=== PATIENT | male | born 1940 | race Caucasian/White ===

== ENCOUNTER → 2021-12-25 11:00 | Outpatient (BNVA) | payer MEDICARE, SELFPAY | PROVIDERS: Visit Provider Student in an Organized Health Care Education/Training Program | DX: M35.3 Polymyalgia rheumatica (principal); M25.541 Pain in joints of right hand; Z79.52 Long term (current) use of systemic steroids | CPT/HCPCS: 36415; 80053; 85025; 85652; 86140; 86200; 86431; 99212 ==

== ENCOUNTER 2021-12-25 11:43 | Outpatient (REF) | payer MEDICARE, SELFPAY ==
[2021-12-25 11:59] LABS: MANUAL DIFF FLAG NO
[2021-12-25 12:33] LABS: Basophils Absolute Auto 0.1 X10*3/uL (0.0-0.2); Basophils Percent Auto 0.7 % (0-2); Eosinophils Absolute Auto 0.1 X10*3/uL (0.0-0.4); Eosinophils Percent Auto 0.7 % (0-4); Hemoglobin 13.8 g/dl (14.0-18.0); Imm Gran Abs Auto 0.03 X10*3/uL (0.00-0.03); Imm Gran Pct Auto 0.4 % (0.0-0.4); Lymphocytes Absolute Auto 1.3 X10*3/uL (1.2-4.9); Lymphocytes Percent Auto 16.4 % (20-40); Mean Corpuscular HGB Conc 33.7 g/dl (31.0-36.0); Mean Corpuscular Hemoglobin 31.6 pg (27.0-33.0); Mean Corpuscular Volume 93.8 fL (80.0-98.0); Mean Platelet Volume 9.6 fL (9.4-12.4); Monocytes Absolute Auto 0.7 X10*3/uL (0.1-1.2); Monocytes Percent Auto 8.2 % (2-11); Neutrophils Percent Auto 73.6 % (45-73); Platelet Count 265 X10*3/uL (160-400); Red Blood Count 4.37 X10*6/uL (4.60-5.80); Red Cell Distribution Width 13.6 % (11.0-16.0); White Blood Count 8.2 X10*3/uL (4.8-10.8)
[2021-12-25 13:24] LABS: Erythrocyte Sedimentation Rate 7 MM/HR (0-15)
[2021-12-25 13:29] LABS: Alanine Aminotransferase 25 U/L (0-40); Albumin Level 4.2 g/dL (3.5-5.0); Alkaline Phosphatase 64 U/L (39-117); Anion Gap 16 (12-20); Aspartate Amino Transferase 20 U/L (5-37); Bilirubin Total 0.6 mg/dL (0.0-1.0); Blood Urea Nitrogen 23 mg/dL (9-16); C Reactive Protein 0.34 mg/dL (< or = 0.50); Calcium 8.9 mg/dL (8.4-10.2); Carbon Dioxide 20 mmol/L (22-29); Chloride 104 mmol/L (96-108); Estimated Glomerular Filt Rate 38; Potassium 4.6 mmol/L (3.3-5.1); Rheumatoid Factor < 15.0 IU/mL (<15.0); Sodium 135 mmol/L (135-145); Total Protein 6.9 g/dL (6.5-8.0)
[2021-12-25 13:32] LABS: Glucose Random 391 mg/dL (60-115)
[2021-12-29 16:57] LABS: Cyclic Citrullinated Peptide <16 UNITS
== END 2021-12-25 11:44 | disposition home or self-care (01) ==
LOC: HO.LAB 11:43
PROVIDERS: Visit Provider Student in an Organized Health Care Education/Training Program
DX: Z13.89 Encounter for screening for other disorder (principal)
CPT/HCPCS: 36415; 80053; 85025; 85652; 86140; 86200; 86431

== ENCOUNTER → 2022-03-02 08:05 | Outpatient (BNVA) | payer MEDICARE, SELFPAY | PROVIDERS: PCP Physician Assistant; Visit Provider Student in an Organized Health Care Education/Training Program | DX: M35.3 Polymyalgia rheumatica (principal); M25.541 Pain in joints of right hand | CPT/HCPCS: 99212 ==

== ENCOUNTER → 2022-04-27 07:59 | Outpatient (BNVA) | payer MEDICARE, SELFPAY | PROVIDERS: PCP Physician Assistant; Visit Provider Student in an Organized Health Care Education/Training Program | DX: M18.12 Unilateral primary osteoarthritis of first carpometacarpal joint, left hand (principal); M35.3 Polymyalgia rheumatica | CPT/HCPCS: 99212 ==

== ENCOUNTER → 2022-08-04 08:39 | Outpatient (BNVA) | payer MEDICARE, SELFPAY | PROVIDERS: PCP Physician Assistant; Visit Provider Student in an Organized Health Care Education/Training Program | DX: M18.12 Unilateral primary osteoarthritis of first carpometacarpal joint, left hand (principal); M35.3 Polymyalgia rheumatica | CPT/HCPCS: 20600; 36415; 80053; 85025; 85652; 86140; 99212 ==

== ENCOUNTER 2022-08-04 09:09 | Outpatient (REF) | payer MEDICARE, SELFPAY ==
[2022-08-04 10:30] LABS: MANUAL DIFF FLAG NO
[2022-08-04 10:35] LABS: Basophils Absolute Auto 0.1 X10*3/uL (0.0-0.2); Eosinophils Absolute Auto 0.2 X10*3/uL (0.0-0.4); Eosinophils Percent Auto 2.6 % (0-4); Hematocrit 40.6 % (42.0-52.0); Hemoglobin 13.7 g/dl (14.0-18.0); Imm Gran Abs Auto 0.03 X10*3/uL (0.00-0.03); Imm Gran Pct Auto 0.4 % (0.0-0.4); Lymphocytes Absolute Auto 2.6 X10*3/uL (1.2-4.9); Lymphocytes Percent Auto 31.4 % (20-40); Mean Corpuscular HGB Conc 33.7 g/dl (31.0-36.0); Mean Corpuscular Hemoglobin 31.6 pg (27.0-33.0); Mean Corpuscular Volume 93.5 fL (80.0-98.0); Mean Platelet Volume 9.6 fL (9.4-12.4); Monocytes Absolute Auto 0.9 X10*3/uL (0.1-1.2); Monocytes Percent Auto 11.5 % (2-11); Neutrophils Absolute Auto 4.3 x10*3/uL (2.0-8.3); Neutrophils Percent Auto 53.1 % (45-73); Platelet Count 264 X10*3/uL (160-400); Red Blood Count 4.34 X10*6/uL (4.60-5.80); Red Cell Distribution Width 13.8 % (11.0-16.0); White Blood Count 8.1 X10*3/uL (4.8-10.8)
[2022-08-04 10:59] LABS: Alanine Aminotransferase 25 U/L (0-40); Albumin Level 4.2 g/dL (3.5-5.0); Alkaline Phosphatase 78 U/L (39-117); Anion Gap 13 (12-20); Aspartate Amino Transferase 26 U/L (5-37); Bilirubin Total 0.8 mg/dL (0.0-1.0); Blood Urea Nitrogen 23 mg/dL (9-16); C Reactive Protein 0.51 mg/dL (< or = 0.50); Calcium 9.4 mg/dL (8.4-10.2); Carbon Dioxide 25 mmol/L (22-29); Chloride 106 mmol/L (96-108); Estimated Glomerular Filt Rate 39; Glucose Random 160 mg/dL (60-115); Potassium 4.5 mmol/L (3.3-5.1); Sodium 139 mmol/L (135-145); Total Protein 6.9 g/dL (6.5-8.0)
[2022-08-04 11:27] LABS: Erythrocyte Sedimentation Rate 10 MM/HR (0-15)
== END 2022-08-04 09:10 | disposition home or self-care (01) ==
LOC: HO.10HDL 09:09
PROVIDERS: Visit Provider Student in an Organized Health Care Education/Training Program
DX: Z13.89 Encounter for screening for other disorder (principal)
CPT/HCPCS: 36415; 80053; 85025; 85652; 86140; 99212

== ENCOUNTER 2023-02-22 09:24 | Outpatient (AMB) | payer MEDICARE, SELFPAY ==
[2023-02-22 09:25] VITALS: BP 126/68; PULSE 57; TEMP 36.2; O2SAT 98; BMI 29.3
--- NOTE | 2023-02-22 09:25 | A.OFFVIS_ITS ---
Intake Vital Signs 02/22/23 09:25 Height 5 ft 9 in Weight 198 lb 6.656 oz BMI 29.3 BP 126/68 Blood Pressure Location Rt brachial Position Sitting Pulse 57 Pulse Source Pulse Oximeter Temp 97.1 F Temp Source Skin Pulse Oximetry (%) 98 Intake Visit Reasons: PMR Intake Note: Pt last seen 08/04/22, presents today to follow up on PMR. Not on prednisone. Admits flare up of symptoms bl hands. 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 States that he was doing well until about 1 month ago when he started to have pain and stiffness of both hands, worse on the left. He was not able to hold a golf club. States that there was no increased physical activity. He was off prednisone. He started taking prednisone 2 mg daily over the last 4 weeks with moderate improvement. Initial history: 81-year-old male past medical history of hypertension, dyslipidemia, type 2 diabetes, CKD, BPH is here for evaluation of polymyalgia rheumatica. He was last seen by Dr. Aguayo last year. He was diagnosed with polymyalgia rheumatica about 2 years ago no started on prednisone taper. He has been taking 2 mg of prednisone every day for the last 6-8 months. He mentions that if he misses the dose for a few days he will have pain and stiffness of his hands. Currently he has occasional neck pain. Also recently he was walking in [place] [facility] and afterwards had pain in the lateral aspect of both hips which is improving now. He denies headaches, blurry vision. [facility] Medical History Lateral epicondylitis Kidney stone BPH (benign prostatic hyperplasia) CKD (chronic kidney disease) Type 2 diabetes mellitus Hypertension Dyslipidemia Afib CAD (coronary artery disease) Factor XI deficiency Surgical History H/O heart surgery Hx of tonsillectomy Hx of colonoscopy Social History Alcohol intake: current Alcohol intake frequency: does not drink Patient Tobacco Use Status: Former Tobacco user Quit Date: 1983 Review of Systems Const Denies fatigue and Denies fever(s) Resp Reports no additional complaints Musc Reports arthralgias Endo Denies fatigue Physical Exam Vital Signs: Last Vital Signs Temp 97.1 F 02/22/23 09:25 Pulse 57 02/22/23 09:25 BP 126/68 02/22/23 09:25 Pulse Ox 98 02/22/23 09:25 BMI result Body Mass Index 29.3 Const General: cooperative, healthy appearing, comfortable, no acute distress and well developed Nutritional Appearance: overweight Orientation/consciousness: patient oriented x3 Limitations: no limitations Resp Effort & Inspection: normal respiratory effort and able to speak in complete sentences Auscultation: clear to auscultation bilaterally Cardio Rate: regular rate Rhythm: regular rhythm and abnormal rhythm Heart sounds: S1 normal heart sound present GI Palpation (GI): Soft to palpation and nontender Skin General skin exam: no rashes or lesions noted Neuro General: patient oriented x3 Extrem Other: Full range of motion of hands, shoulders, elbows without pain Left 1st CMC joint tenderness Left 1st MCP tenderness Left 2nd and 3rd flexor tendon tenderness Right 1st CMC joint and right 1st MCP joint tenderness Right 3rd and 4th flexor tendon tenderness General: Yes full ROM Assessment & Plan Assessment & Plan (1) Polymyalgia rheumatica: Code(s): M35.3 - Polymyalgia rheumatica Plan: 82-year-old male with a past medical history of hypertension, type 2 diabetes mellitus, CKD is here for PMR f/u. Diagnosed around in 2019. He Was started on a prednisone taper. Patient was off prednisone since last visit in 07/2022, 1 month ago he started having a flare-up of joint pain. Improved with 2 mg of prednisone daily. On exam he has multiple flexor tendon tenderness, clinical picture rather consistent with seronegative RA. Check labs today, check an EKG to evaluate his QTC interval. Increase prednisone to 5 mg daily. Will check his HbA1c today. Advised patient to check his sugar and call the clinic if his blood sugar increases above 200 Follow-up in 4 weeks (2) Unilateral primary osteoarthritis of first carpometacarpal joint, left hand: Code(s): M18.12 - Unilateral primary osteoarthritis of first carpometacarpal joint, left hand Plan: Injected in clinic 07/2022 with good relief Plan I spent 26 minutes reviewing patient's chart, evaluating patient, ordering diagnostic workup, counseling patient and documenting in the chart Orders: Orders Complete Blood Count Auto Diff Today M06.9 - Rheumatoid arthritis, unspecified C Reactive Protein Today M06.9 - Rheumatoid arthritis, unspecified Erythrocyte Sedimentation Rate Today M06.9 - Rheumatoid arthritis, unspecified Hemoglobin A1c Today E11.9 - Type 2 diabetes mellitus without complications T Spot TB Today Z11.7 - Encounter for testing for latent tuberculosis infection Immunofixation Pnl, Serum Today M06.9 - Rheumatoid arthritis, unspecified Protein Electrophoresis, Serum Today M06.9 - Rheumatoid arthritis, unspecified Rheumatoid Factor Today M06.9 - Rheumatoid arthritis, unspecified Comprehensive Met. Panel Today M06.9 - Rheumatoid arthritis, unspecified Hepatitis A,B,C Profile Today Z11.59 - Encounter for screening for other viral diseases ECG 12 lead EKG Today I48.91 - Unspecified atrial fibrillation Cyclic Citrullinated Peptide Today M06.9 - Rheumatoid arthritis, unspecified Medications: New prednisone 5 mg (2 x 2.5 mg) PO DAILY 30 tabs 1RF prednisone 5 mg (2 x 2.5 mg) PO DAILY 60 tabs 1RF Coding Level of Care Code Est Pt Level 4 (65715) Diagnoses Polymyalgia rheumatica M35.3 Unilateral primary osteoarthritis of first carpometacarpal joint, left hand M18.12
== END 2023-02-22 09:51 | disposition home or self-care (01) ==
PROVIDERS: PCP Physician Assistant; Visit Provider Student in an Organized Health Care Education/Training Program
DX: M35.3 Polymyalgia rheumatica (principal); M18.12 Unilateral primary osteoarthritis of first carpometacarpal joint, left hand
CPT/HCPCS: 99214

== ENCOUNTER → 2023-02-22 09:24 | Outpatient (BNVA) | payer MEDICARE, SELFPAY | PROVIDERS: PCP Physician Assistant; Visit Provider Student in an Organized Health Care Education/Training Program | DX: M18.12 Unilateral primary osteoarthritis of first carpometacarpal joint, left hand (principal); M35.3 Polymyalgia rheumatica; M06.9 Rheumatoid arthritis, unspecified; E11.9 Type 2 diabetes mellitus without complications; Z12.5 Encounter for screening for malignant neoplasm of prostate; Z11.59 Encounter for screening for other viral diseases; Z72.89 Other problems related to lifestyle | CPT/HCPCS: 36415; 80053; 82784; 83036; 84153; 84165; 85025; 85652; 86140; 86200; 86334; 86431; 86481; 86704; 86706; 86709; 86803; 87340; 99212 ==

== ENCOUNTER 2023-02-22 10:08 | Outpatient (REF) | payer MEDICARE, SELFPAY ==
[2023-02-22 10:40] LABS: MANUAL DIFF FLAG NO
[2023-02-22 10:46] LABS: Basophils Absolute Auto 0.1 X10*3/uL (0.0-0.2); Basophils Percent Auto 0.7 % (0-2); Eosinophils Absolute Auto 0.1 X10*3/uL (0.0-0.4); Eosinophils Percent Auto 1.7 % (0-4); Hematocrit 42.5 % (42.0-52.0); Hemoglobin 13.9 g/dl (14.0-18.0); Imm Gran Abs Auto 0.03 X10*3/uL (0.00-0.03); Imm Gran Pct Auto 0.4 % (0.0-0.4); Lymphocytes Absolute Auto 2.4 X10*3/uL (1.2-4.9); Lymphocytes Percent Auto 30.2 % (20-40); Mean Corpuscular HGB Conc 32.7 g/dl (31.0-36.0); Mean Corpuscular Hemoglobin 31.2 pg (27.0-33.0); Mean Corpuscular Volume 95.5 fL (80.0-98.0); Mean Platelet Volume 9.4 fL (9.4-12.4); Monocytes Absolute Auto 0.7 X10*3/uL (0.1-1.2); Monocytes Percent Auto 9.2 % (2-11); Neutrophils Absolute Auto 4.7 x10*3/uL (2.0-8.3); Neutrophils Percent Auto 57.8 % (45-73); Platelet Count 263 X10*3/uL (160-400); Red Blood Count 4.45 X10*6/uL (4.60-5.80); Red Cell Distribution Width 13.7 % (11.0-16.0); White Blood Count 8.1 X10*3/uL (4.8-10.8)
[2023-02-22 10:54] LABS: Estimated Average Glucose 183 mg/dL
[2023-02-22 11:00] LABS: Alanine Aminotransferase 27 U/L (0-40); Albumin Level 4.3 g/dL (3.5-5.0); Alkaline Phosphatase 66 U/L (39-117); Anion Gap 14 (12-20); Aspartate Amino Transferase 30 U/L (5-37); Bilirubin Total 0.9 mg/dL (0.0-1.0); Blood Urea Nitrogen 25 mg/dL (9-16); C Reactive Protein 0.52 mg/dL (< or = 0.50); Calcium 9.6 mg/dL (8.4-10.2); Carbon Dioxide 20 mmol/L (22-29); Chloride 107 mmol/L (96-108); Estimated Glomerular Filt Rate 40; Glucose Random 150 mg/dL (60-115); Potassium 4.2 mmol/L (3.3-5.1); Sodium 137 mmol/L (135-145); Total Protein 7.5 g/dL (6.5-8.0)
[2023-02-22 11:19] LABS: Rheumatoid Factor < 13.0 IU/mL (<15.0)
[2023-02-22 11:25] LABS: Erythrocyte Sedimentation Rate 10 MM/HR (0-15)
[2023-02-22 11:40] LABS: HBS Num1 0.08 mIU/mL (0-7.99); HBc Num1 0.07 S/CO (0.00-0.79); HBsAGNum1 0.42 S/CO (0.00-0.99); Hepatitis A Antibody IgM 0.12 Index (0-0.79); Hepatitis B Core Antibody Nonreactive (Nonreactive); Hepatitis B Surface Antigen Negative (Negative); ~HepC Num1 0.03 S/CO (0.00-0.79); ~Hepatitis A Antibody IgM Nonreactive (Nonreactive); ~Hepatitis B Surface Antibody NONREACTIVE (Nonreactive); ~Hepatitis C Antibody Nonreactive (Nonreactive)
[2023-02-22 12:24] LABS: Prostate Specific Antigen 4.32 ng/mL (<0.05-4.0)
[2023-02-24 13:09] LABS: Cyclic Citrullinated Peptide <16 UNITS
[2023-02-24 22:54] LABS: TS Negative Control Passed; TS Panel A 0; TS Panel B 0; TS Positive Control Passed; TSpotTB Negative (Negative)
[2023-02-25 10:33] LABS: IgA 400 mg/dL (70-320); IgG 990 mg/dL (600-1540); IgM 35 mg/dL (50-300)
[2023-02-25 10:44] LABS: Prot Elec - Albumin 4.3 g/dL (3.8-4.8); Prot Elec - Alpha1 0.3 g/dL (0.2-0.3); Prot Elec - Alpha2 0.7 g/dL (0.5-0.9); Prot Elec - Beta 1 0.5 g/dL (0.4-0.6); Prot Elec - Beta 2 0.5 g/dL (0.2-0.5); Prot Elec - Gamma 0.9 g/dL (0.8-1.7); Prot Elec - Total Protein 7.1 g/dL (6.1-8.1)
== END 2023-02-22 10:09 | disposition home or self-care (01) ==
LOC: HO.10HDL 10:08
PROVIDERS: Absent Provider Urology; Visit Provider Student in an Organized Health Care Education/Training Program
DX: Z13.89 Encounter for screening for other disorder (principal)
CPT/HCPCS: 36415; 80053; 82784; 83036; 84153; 84165; 85025; 85652; 86140; 86200; 86334; 86431; 86481; 86704; 86706; 86709; 86803; 87340

== ENCOUNTER 2023-03-22 10:18 | Outpatient (AMB) | payer MEDICARE, SELFPAY ==
--- NOTE | 2023-03-22 10:27 | A.OFFVIS_ITS ---
Intake Vital Signs 03/22/23 10:28 Height 5 ft 9 in Weight 201 lb 8.04 oz BMI 29.8 BP 118/72 Blood Pressure Location Rt brachial Position Sitting Pulse 62 Pulse Source Pulse Oximeter Temp 96.9 F Temp Source Skin Pulse Oximetry (%) 97 Oxygen Delivery Method Room Air Intake Visit Reasons: PMR Intake Note: Pt last seen 02/22/23, presents today for follow up and test results. States he feels better than last time, hand pain resolved. 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 Has been taking prednisone 5 mg daily since last visit. Doing much better overall. Able to move his hands and fingers normally. Has some pain at the base of the thumb but it is negligible. Initial history: 81-year-old male past medical history of hypertension, dyslipidemia, type 2 diabetes, CKD, BPH is here for evaluation of polymyalgia rheumatica. He was last seen by Dr. Aguayo last year. He was diagnosed with polymyalgia rheumatica about 2 years ago no started on prednisone taper. He has been taking 2 mg of prednisone every day for the last 6-8 months. He mentions that if he misses the dose for a few days he will have pain and stiffness of his hands. Currently he has occasional neck pain. Also recently he was walking in [place] [employer] and afterwards had pain in the lateral aspect of both hips which is improving now. He denies headaches, blurry vision. [facility] Medical History (Updated 03/22/23 @ 10:51 by Santos Burnette MD) Afib Polymyalgia rheumatica Lateral epicondylitis Kidney stone BPH (benign prostatic hyperplasia) CKD (chronic kidney disease) Type 2 diabetes mellitus Hypertension Dyslipidemia CAD (coronary artery disease) Factor XI deficiency Surgical History H/O heart surgery Hx of tonsillectomy Hx of colonoscopy Alcohol intake: current Alcohol intake frequency: does not drink Patient Tobacco Use Status: Former Tobacco user Quit Date: 1983 Review of Systems Const Denies fatigue and Denies fever(s) Resp Reports no additional complaints Musc Denies stiffness Endo Denies fatigue Physical Exam Vital Signs: Last Vital Signs Temp 96.9 F 03/22/23 10:28 Pulse 62 03/22/23 10:28 BP 118/72 03/22/23 10:28 Pulse Ox 97 03/22/23 10:28 Oxygen Delivery Method Room Air 03/22/23 10:28 BMI result Body Mass Index 29.8 Const General: cooperative, healthy appearing, comfortable, no acute distress and well developed Nutritional Appearance: overweight Orientation/consciousness: patient oriented x3 Limitations: no limitations Resp Effort & Inspection: normal respiratory effort and able to speak in complete sentences Neuro General: patient oriented x3 Extrem Other: Full range of motion of hands, shoulders, elbows without pain Right 2nd flexor tendon tenderness No active synovitis otherwise Flexion contracture of right ring finger General: Yes full ROM Assessment & Plan Assessment & Plan (1) Rheumatoid arthritis: Comment: PMR dx 2019 ttt PDN tapered off 07/2022 Seroneg RA dx 01/2023 Code(s): M06.9 - Rheumatoid arthritis, unspecified Qualifiers: Rheumatoid arthritis location: multiple sites Rheumatoid factor presence: without rheumatoid factor Qualified Code(s): M06.09 - Rheumatoid arthritis without rheumatoid factor, multiple sites Plan: 82-year-old male with a past medical history of hypertension, type 2 diabetes mellitus, CKD is here for PMR f/u.? Diagnosed around in 2019.? He Was started on a prednisone taper.?? Patient was off prednisone since last visit in 07/2022, 1 month ago he started having a flare-up of joint pain.? Improved with 2 mg of prednisone daily.? On exam last visit he has multiple flexor tendon tenderness, clinical picture rather consistent with seronegative RA. Symptoms resolved with prednisone 5 mg daily Advised patient to alternate 5 mg of prednisone daily with 2.5 mg daily for 1 month then remain on 2.5 mg daily Follow-up in 3 months (2) Unilateral primary osteoarthritis of first carpometacarpal joint, left hand: Code(s): M18.12 - Unilateral primary osteoarthritis of first carpometacarpal joint, left hand Plan: Injected in clinic 07/2022 with good relief Plan I spent 26 minutes reviewing patient's chart, evaluating patient, counseling patient and documenting in the chart Coding Level of Care Code Est Pt Level 4 (08543) Diagnoses Rheumatoid arthritis of multiple sites with negative rheumatoid factor M06.09 Rheumatoid arthritis location: multiple sites Rheumatoid factor presence: without rheumatoid factor Unilateral primary osteoarthritis of first carpometacarpal joint, left hand M18.12
[2023-03-22 10:28] VITALS: BP 118/72; PULSE 62; TEMP 36.1; O2SAT 97; BMI 29.8
== END 2023-03-22 10:48 | disposition home or self-care (01) ==
LOC: HO.RHE 10:18
PROVIDERS: PCP Physician Assistant; Visit Provider Student in an Organized Health Care Education/Training Program
DX: M06.09 Rheumatoid arthritis without rheumatoid factor, multiple sites (principal); M18.12 Unilateral primary osteoarthritis of first carpometacarpal joint, left hand
CPT/HCPCS: 99214

== ENCOUNTER → 2023-03-22 10:18 | Outpatient (BNVA) | payer MEDICARE, SELFPAY | PROVIDERS: PCP Physician Assistant; Visit Provider Student in an Organized Health Care Education/Training Program | DX: M06.09 Rheumatoid arthritis without rheumatoid factor, multiple sites (principal); M18.12 Unilateral primary osteoarthritis of first carpometacarpal joint, left hand | CPT/HCPCS: 99212 ==

== ENCOUNTER 2023-05-18 08:14 | Outpatient (AMB) | payer MEDICARE, SELFPAY ==
[2023-05-18 08:15] VITALS: BP 130/60; PULSE 68; TEMP 36.3; O2SAT 99; BMI 29.8
--- NOTE | 2023-05-18 08:15 | A.OFFVIS_ITS ---
Intake Vital Signs 05/18/23 08:15 Height 5 ft 9 in Weight 201 lb 8.04 oz BMI 29.8 BP 130/60 Blood Pressure Location Lt brachial Position Sitting Pulse 68 Pulse Source Pulse Oximeter Temp 97.4 F Temp Source Skin Pulse Oximetry (%) 99 Oxygen Delivery Method Room Air Intake Visit Reasons: PMR Intake Note: Patient last seen 03/22/23 presents today for follow up. 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 He has been alternating prednisone 5 mg daily with 2.5 mg daily. Gets intermittent left thumb pain but nothing persistent. States that he was in an [place] last week & all his grew got sick. He started having upper respiratory tract infection symptoms yesterday night. Initial history: 81-year-old male past medical history of hypertension, dyslipid emia, type 2 diabetes, CKD, BPH is here for evaluation of polymyalgia rheumatica. He was last seen by Dr. Aguayo last year. He was diagnosed with polymyalgia rheumatica about 2 years ago no started on prednisone taper. He has been taking 2 mg of prednisone every day for the last 6-8 months. He mentions that if he misses the dose for a few days he will have pain and stiffness of his hands. Currently he has occasional neck pain. Also recently he was walking in [place] [facility] and afterwards had pain in the lateral aspect of both hips which is improving now. He denies headaches, blurry vision. [facility] Medical History Afib Polymyalgia rheumatica Lateral epicondylitis Kidney stone BPH (benign prostatic hyperplasia) CKD (chronic kidney disease) Type 2 diabetes mellitus Hypertension Dyslipidemia CAD (coronary artery disease) Factor XI deficiency Surgical History H/O heart surgery Hx of tonsillectomy Hx of colonoscopy Social History Alcohol intake: current Alcohol intake frequency: does not drink Patient Tobacco Use Status: Former Tobacco user Quit Date: 1983 Review [place] [facility] [place]gias and Reports stiffness Physical Exam Vital Signs: Last Vital Signs Temp 97.4 F 05/18/23 08:15 Pulse 68 05/18/23 08:15 BP 130/60 05/18/23 08:15 Pulse Ox 99 05/18/23 08:15 Oxygen Delivery Method Room Air 05/18/23 08:15 BMI result Body Mass Index 29.8 Const General: cooperative, healthy appearing, comfortable, no acute distress and well developed Nutritional Appearance: overweight Orientation/consciousness: patient oriented x3 Limitations: no limitations HEENT Other: Nasal congestion Resp Effort & Inspection: normal respiratory effort and able to speak in complete sentences Auscultation: clear to auscultation bilaterally Neuro General: patient oriented x3 Extrem Other: Full range of motion of hands, shoulders, elbows without pain Right 2nd flexor tendon tenderness No active synovitis otherwise Flexion contracture of right ring finger General: Yes full ROM Assessment & Plan Assessment & Plan (1) Rheumatoid arthritis: Comment: PMR dx 2019 ttt PDN tapered off 07/2022 Seroneg RA dx 01/2023 Code(s): M06.9 - Rheumatoid arthritis, unspecified Qualifiers: Rheumatoid arthritis location: multiple sites Rheumatoid factor presence: without rheumatoid factor Qualified Code(s): M06.09 - Rheumatoid arthritis without rheumatoid factor, multiple sites Plan: 82-year-old male with seronegative RA who presents for follow-up. Doing well overall. No active synovitis on exam. On prednisone 5 mg daily alternating with 2.5 mg daily. Reduce prednisone to 2.5 mg daily. Discussed long-term side effects of steroids such as glaucoma, worsening diabetes control, hypertension. However this is a low-dose with relatively lower risk. Advised patient to follow-up regularly with an roll finisher [facility] before next visit in 4 month (2) Unilateral primary osteoarthritis of first carpometacarpal joint, left hand: Code(s): M18.12 - Unilateral primary osteoarthritis of first carpometacarpal joint, left hand Plan: Injected in clinic 07/2022 with good relief Plan I spent 16 minutes reviewing patient's chart, evaluating patient, ordering diagnostic workup, counseling patient and documenting in the chart Orders: Orders Comprehensive Met. Panel 4 Months M06.9 - Rheumatoid arthritis, unspecified Erythrocyte Sedimentation Rate 4 Months M06.9 - Rheumatoid arthritis, unspecified Complete Blood Count Auto Diff 4 Months M06.9 - Rheumatoid arthritis, unspecified C Reactive Protein 4 Months M06.9 - Rheumatoid arthritis, unspecified Medications: New prednisone 2.5 mg PO DAILY 90 tabs 1RF Discontinued prednisone Discontinued Reason: Doctor's Order 7.5 mg PO DAILY Coding Level of Care Code Est Pt Level 3 (86972) Diagnoses Rheumatoid arthritis of multiple sites with negative rheumatoid factor M06.09 Rheumatoid arthritis location: multiple sites Rheumatoid factor presence: without rheumatoid factor Unilateral primary osteoarthritis of first carpometacarpal joint, left hand M18.12
== END 2023-05-18 08:34 | disposition home or self-care (01) ==
PROVIDERS: PCP Physician Assistant; Visit Provider Student in an Organized Health Care Education/Training Program
DX: M06.09 Rheumatoid arthritis without rheumatoid factor, multiple sites (principal); M18.12 Unilateral primary osteoarthritis of first carpometacarpal joint, left hand
CPT/HCPCS: 99213

== ENCOUNTER → 2023-05-18 08:14 | Outpatient (BNVA) | payer MEDICARE, SELFPAY | PROVIDERS: PCP Physician Assistant; Visit Provider Student in an Organized Health Care Education/Training Program | DX: M06.09 Rheumatoid arthritis without rheumatoid factor, multiple sites (principal); M18.12 Unilateral primary osteoarthritis of first carpometacarpal joint, left hand | CPT/HCPCS: 99212 ==

== ENCOUNTER 2023-09-01 12:28 | Outpatient (REF) | payer MEDICARE, SELFPAY ==
[2023-09-01 13:13] LABS: MANUAL DIFF FLAG NO
[2023-09-01 13:18] LABS: Basophils Absolute Auto 0.1 X10*3/uL (0.0-0.2); Basophils Percent Auto 0.7 % (0-2); Eosinophils Absolute Auto 0.1 X10*3/uL (0.0-0.4); Eosinophils Percent Auto 1.2 % (0-4); Hematocrit 41.9 % (42.0-52.0); Hemoglobin 14.1 g/dl (14.0-18.0); Imm Gran Abs Auto 0.03 X10*3/uL (0.00-0.03); Imm Gran Pct Auto 0.4 % (0.0-0.4); Lymphocytes Absolute Auto 2.6 X10*3/uL (1.2-4.9); Mean Corpuscular HGB Conc 33.7 g/dl (31.0-36.0); Mean Corpuscular Hemoglobin 31.7 pg (27.0-33.0); Mean Corpuscular Volume 94.2 fL (80.0-98.0); Mean Platelet Volume 8.7 fL (9.4-12.4); Monocytes Absolute Auto 0.7 X10*3/uL (0.1-1.2); Monocytes Percent Auto 9.6 % (2-11); Neutrophils Absolute Auto 3.9 x10*3/uL (2.0-8.3); Neutrophils Percent Auto 53.1 % (45-73); Platelet Count 259 X10*3/uL (160-400); Red Blood Count 4.45 X10*6/uL (4.60-5.80); Red Cell Distribution Width 13.2 % (11.0-16.0); White Blood Count 7.4 X10*3/uL (4.8-10.8)
[2023-09-01 13:32] LABS: Alanine Aminotransferase 17 U/L (0-40); Alkaline Phosphatase 53 U/L (39-117); Anion Gap 14 (12-20); Aspartate Amino Transferase 19 U/L (5-37); Bilirubin Total 0.5 mg/dL (0.0-1.0); Blood Urea Nitrogen 17 mg/dL (9-16); C Reactive Protein 0.16 mg/dL (< or = 0.50); Calcium 9.7 mg/dL (8.4-10.2); Carbon Dioxide 25 mmol/L (22-29); Chloride 104 mmol/L (96-108); Estimated Glomerular Filt Rate 52; Glucose Random 165 mg/dL (60-115); Potassium 4.1 mmol/L (3.3-5.1); Sodium 139 mmol/L (135-145); Total Protein 6.8 g/dL (6.5-8.0)
[2023-09-01 13:38] LABS: Estimated Average Glucose 186 mg/dL; Hemoglobin A1c % 8.1 % (<6.0)
[2023-09-01 14:03] LABS: Erythrocyte Sedimentation Rate 5 MM/HR (0-15)
== END 2023-09-01 12:29 | disposition home or self-care (01) ==
LOC: HO.10HDL 12:28
PROVIDERS: Visit Provider Student in an Organized Health Care Education/Training Program
DX: M06.9 Rheumatoid arthritis, unspecified (principal); E11.9 Type 2 diabetes mellitus without complications
CPT/HCPCS: 36415; 80053; 83036; 85025; 85652; 86140

== ENCOUNTER 2023-09-05 07:59 | Outpatient (AMB) | payer MEDICARE, SELFPAY ==
--- NOTE | 2023-09-05 08:09 | A.OFFVIS_ITS ---
Vital Signs 09/05/23 08:13 Height 5 ft 9 in Weight 197 lb 1.492 oz BMI 29.1 BP 98/64 Blood Pressure Location Rt brachial Position Sitting Pulse 91 Pulse Source Pulse Oximeter Pulse Oximetry (%) 93 Oxygen Delivery Method Room Air Intake Visit Reasons: PMR/cm Intake Note: Patient last seen 05/18/23 presents today for follow up and test results. Caseworker Required: No Accompanied by: Self / Same As Patient Allergies No Known Allergies Allergy (Verified 09/05/23 08:13) Medication List - Last Reconciled 09/05/23 by Santos Burnette MD amiodarone 100 mg PO DAILY amlodipine 5 mg PO DAILY finasteride 5 mg PO DAILY glipizide ER 20 mg PO DAILY omeprazole 20 mg PO DAILY prednisone 1 mg PO DAILY rosuvastatin 20 mg PO BEDTIME HPI Comments Details: 83-year-old male with mild seronegative RA returns for follow-up. Since last visit he has been taking prednisone 1 mg daily until 2 or 3 days ago when she started having some pain in his left thumb and right index. He took prednisone 2.5 mg once with relief. He is doing fairly well otherwise. Initial history: 81-year-old male past medical history of hypertension, dyslipidemia, type 2 diabetes, CKD, BPH is here for evaluation of polymyalgia rheumatica. He was last seen by Dr. Aguayo last year. He was diagnosed with polymyalgia rheumatica about 2 years ago no started on prednisone taper. He has been taking 2 mg of prednisone every day for the last 6-8 months. He mentions that if he misses the dose for a few days he will have pain and stiffness of his hands. Currently he has occasional neck pain. Also recently he was walking in [place] [facility] and afterwards had pain in the lateral aspect of both hips which is improving now. He denies headaches, blurry vision. [facility] Medical History Afib Polymyalgia rheumatica Lateral epicondylitis Kidney stone BPH (benign prostatic hyperplasia) CKD (chronic kidney disease) Type 2 diabetes mellitus Hypertension Dyslipidemia CAD (coronary artery disease) Factor XI deficiency Surgical History H/O heart surgery Hx of tonsillectomy Hx of colonoscopy Social History Alcohol intake: current Alcohol intake frequency: does not drink Patient Tobacco Use Status: Former Tobacco user Quit Date: 1983 Review of Systems [facility] [place]ralgias and Reports stiffness Physical Exam Vital Signs: Last Vital Signs Pulse 91 09/05/23 08:13 BP 98/64 09/05/23 08:13 Pulse Ox 93 09/05/23 08:13 Oxygen Delivery Method Room Air 09/05/23 08:13 BMI result Body Mass Index 29.1 Const General: cooperative, healthy appearing, comfortable, no acute distress and well developed Nutritional Appearance: overweight Orientation/consciousness: patient oriented x3 Limitations: no limitations Resp Effort & Inspection: normal respiratory effort and able to speak in complete sentences Neuro General: patient oriented x3 Extrem Other: Full range of motion of hands, shoulders, elbows without pain Left 1st MCP tenderness, mildly reduced left hand virtual recruiter strength Right 2nd flexor tendon tenderness No active synovitis otherwise Flexion contracture of right ring finger General: Yes full ROM Assessment & Plan Assessment & Plan (1) Rheumatoid arthritis: Comment: PMR dx 2019 ttt PDN tapered off 07/2022 Seroneg RA dx 01/2023 Code(s): M06.9 - Rheumatoid arthritis, unspecified Category: Medical Qualifiers: Rheumatoid arthritis location: multiple sites Rheumatoid factor presence: without rheumatoid factor Qualified Code(s): M06.09 - Rheumatoid arthritis without rheumatoid factor, multiple sites Plan: 83-year-old male with seronegative RA who presents for follow-up. He has been taking prednisone 1 mg daily for the last 4 months or so, very rare minimal fl are-ups that require 2.5 mg Continue prednisone 1 mg daily. Can take 2.5 mg as needed for flare-ups. Advised patient to try to keep a log of the days that he requires 2.5 mg Discussed long-term side effects of steroids such as glaucoma, worsening diabetes control, hypertension. However this is a low-dose with relatively lower risk. Advised patient to follow-up regularly with an welding equipment sales representative Labs before next visit in 4 months (2) Unilateral primary osteoarthritis of first carpometacarpal joint, left hand: Code(s): M18.12 - Unilateral primary osteoarthritis of first carpometacarpal joint, left hand Category: Medical Plan: Injected in clinic 07/2022 with good relief (3) Type 2 diabetes mellitus: Code(s): E11.9 - Type 2 diabetes mellitus without complications Category: Medical Qualifiers: Diabetes mellitus chcf insulin use: without ocean transportation intermediary use Diabetes mellitus complication status: without complication Qualified Code(s): E11.9 - Type 2 diabetes mellitus without complications Plan: HbA1c 8.1%. Remains uncontrolled. Advised patient to follow-up with his PCP Plan I spent 26 minutes reviewing patient's chart, evaluating patient, ordering diagnostic workup, counseling patient and documenting in the chart Orders: Orders Complete Blood Count Auto Diff 4 Months M06.09 - Rheumatoid arthritis without rheumatoid factor, multiple sites Comprehensive Met. Panel 4 Months M06.09 - Rheumatoid arthritis without rheumatoid factor, multiple sites Erythrocyte Sedimentation Rate 4 Months M06.09 - Rheumatoid arthritis without rheumatoid factor, multiple sites C Reactive Protein 4 Months M06.09 - Rheumatoid arthritis without rheumatoid factor, multiple sites Medications: New prednisone 1 mg PO DAILY 90 tabs 1RF Coding Level of Care Code Est Pt Level 4 (96901) Diagnoses Rheumatoid arthritis of multiple sites with negative rheumatoid factor M06.09 Rheumatoid arthritis location: multiple sites Rheumatoid factor presence: without rheumatoid factor Unilateral primary osteoarthritis of first carpometacarpal joint, left hand M18.12 Type 2 diabetes mellitus without complication, without long-term current use of insulin E11.9 Diabetes mellitus ocean transportation intermediary insulin use: without ocean transportation intermediary use Diabetes mellitus complication status: without complication
[2023-09-05 08:13] VITALS: BP 98/64; PULSE 91; O2SAT 93; BMI 29.1
== END 2023-09-05 08:23 | disposition home or self-care (01) ==
PROVIDERS: PCP Physician Assistant; Visit Provider Student in an Organized Health Care Education/Training Program
DX: M06.09 Rheumatoid arthritis without rheumatoid factor, multiple sites (principal); M18.12 Unilateral primary osteoarthritis of first carpometacarpal joint, left hand; E11.9 Type 2 diabetes mellitus without complications
CPT/HCPCS: 99214

== ENCOUNTER → 2023-09-05 07:59 | Outpatient (BNVA) | payer MEDICARE, SELFPAY | PROVIDERS: PCP Physician Assistant; Visit Provider Student in an Organized Health Care Education/Training Program | DX: M06.09 Rheumatoid arthritis without rheumatoid factor, multiple sites (principal); M18.12 Unilateral primary osteoarthritis of first carpometacarpal joint, left hand; E11.9 Type 2 diabetes mellitus without complications | CPT/HCPCS: 99212 ==

== ENCOUNTER 2023-12-28 09:55 | Outpatient (REF) | payer MEDICARE, SELFPAY ==
[2023-12-28 11:12] LABS: MANUAL DIFF FLAG NO
[2023-12-28 11:19] LABS: Basophils Absolute Auto 0.1 X10*3/uL (0.0-0.2); Basophils Percent Auto 0.7 % (0-2); Eosinophils Absolute Auto 0.1 X10*3/uL (0.0-0.4); Eosinophils Percent Auto 1.2 % (0-4); Hematocrit 45.3 % (42.0-52.0); Hemoglobin 14.9 g/dl (14.0-18.0); Imm Gran Abs Auto 0.03 X10*3/uL (0.00-0.03); Imm Gran Pct Auto 0.3 % (0.0-0.4); Lymphocytes Absolute Auto 2.4 X10*3/uL (1.2-4.9); Lymphocytes Percent Auto 26.3 % (20-40); Mean Corpuscular HGB Conc 32.9 g/dl (31.0-36.0); Mean Corpuscular Hemoglobin 31.4 pg (27.0-33.0); Mean Corpuscular Volume 95.4 fL (80.0-98.0); Monocytes Absolute Auto 0.8 X10*3/uL (0.1-1.2); Monocytes Percent Auto 9.1 % (2-11); Neutrophils Absolute Auto 5.7 x10*3/uL (2.0-8.3); Neutrophils Percent Auto 62.4 % (45-73); Platelet Count 265 X10*3/uL (160-400); Red Blood Count 4.75 X10*6/uL (4.60-5.80); Red Cell Distribution Width 13.3 % (11.0-16.0); White Blood Count 9.1 X10*3/uL (4.8-10.8)
[2023-12-28 11:40] LABS: Alanine Aminotransferase 39 U/L (0-40); Albumin Level 4.4 g/dL (3.5-5.0); Alkaline Phosphatase 64 U/L (39-117); Anion Gap 14 (12-20); Aspartate Amino Transferase 26 U/L (5-37); Blood Urea Nitrogen 23 mg/dL (9-16); C Reactive Protein 0.19 mg/dL (< or = 0.50); Calcium 9.8 mg/dL (8.4-10.2); Carbon Dioxide 25 mmol/L (22-29); Chloride 105 mmol/L (96-108); Estimated Glomerular Filt Rate 45; Glucose Random 141 mg/dL (60-115); Potassium 4.8 mmol/L (3.3-5.1); Sodium 139 mmol/L (135-145); Total Protein 7.4 g/dL (6.5-8.0)
[2023-12-28 11:55] LABS: Erythrocyte Sedimentation Rate 5 MM/HR (0-15)
== END 2023-12-28 09:56 | disposition home or self-care (01) ==
LOC: HO.10HDL 09:55
PROVIDERS: Visit Provider Student in an Organized Health Care Education/Training Program
DX: M06.09 Rheumatoid arthritis without rheumatoid factor, multiple sites (principal)
CPT/HCPCS: 36415; 80053; 85025; 85652; 86140

== ENCOUNTER 2024-01-02 07:58 | Outpatient (AMB) | payer MEDICARE, SELFPAY ==
[2024-01-02 08:09] VITALS: BP 118/64; PULSE 55; O2SAT 96; BMI 28.8
--- NOTE | 2024-01-02 08:09 | MHC.OFFVIS ---
Vital Signs 01/02/24 08:09 Height 5 ft 9 in Weight 194 lb 14.218 oz BMI 28.8 BP 118/64 Blood Pressure Location Lt brachial Position Sitting Pulse 55 Pulse Source Pulse Oximeter Pulse Oximetry (%) 96 Oxygen Delivery Method Room Air Intake Visit Reasons: PMR/RA Intake Note: Patient present for follow up on PMR/RA and labs review. He was last seen on 09/05/2023. Allergies No Known Allergies Allergy (Verified 01/02/24 08:12) Medication List - Last Reconciled 01/02/24 by Santos Burnette MD amiodarone 100 mg PO DAILY amlodipine 5 mg PO DAILY finasteride 5 mg PO DAILY glipizide ER 20 mg PO DAILY omeprazole 20 mg PO DAILY prednisone 1 mg PO DAILY rosuvastatin 20 mg PO BEDTIME HPI Comments Details: 83-year-old male with mild seronegative RA returns for follow-up. States that he is doing quite well overall. Remains on prednisone 1 mg daily. Continues to have achiness at the base of his left thumb and some pain in his right 2nd and 3rd flexor tendons. He has lost 6-7 lb over the last few months by cutting down junk food. Initial history: 81-year-old male past medical history of hypertension, dyslipidemia, type 2 diabetes, CKD, BPH is here for evaluation of polymyalgia rheumatica. He was last seen by Dr. Aguayo last year. He was diagnosed with polymyalgia rheumatica about 2 years ago no started on prednisone taper. He has been taking 2 mg of prednisone every day for the last 6-8 months. He mentions that if he misses the dose for a few days he will have pain and stiffness of his hands. Currently he has occasional neck pain. Also recently he was walking in [employer] and afterwards had pain in the lateral aspect of both hips which is improving now. He denies headaches, blurry vision. [facility] Medical History Afib Polymyalgia rheumatica Lateral epicondylitis Kidney stone BPH (benign prostatic hyperplasia) CKD (chronic kidney disease) Type 2 diabetes mellitus Hypertension Dyslipidemia CAD (coronary artery disease) Factor XI deficiency Surgical History H/O heart surgery Hx of tonsillectomy Hx of colonoscopy Social History Alcohol intake: current Alcohol intake frequency: does not drink Patient Tobacco Use Status: Former Tobacco user Review of Systems [facility] [place] Reports arthralgias and Reports stiffness Physical Exam Vital Signs: Last Vital Signs Pulse 55 01/02/24 08:09 BP 118/64 01/02/24 08:09 Pulse Ox 96 01/02/24 08:09 Oxygen Delivery Method Room Air 01/02/24 08:09 BMI result Body Mass Index 28.8 Const General: cooperative, healthy appearing, comfortable, no acute distress and well developed Nutritional Appearance: overweight Orientation/consciousness: patient oriented x3 Limitations: no limitations Resp Effort & Inspection: normal respiratory effort and able to speak in complete sentences Cardio Heart sounds: Murmur heart sound present systolic Neuro General: patient oriented x3 Extrem Other: Full range of motion of hands, shoulders, elbows without pain Left 1st MCP tenderness, mildly reduced left hand waist fitter strength Right 2nd and 3rd flexor tendon tenderness No active synovitis otherwise Flexion contracture of right ring finger Trace pitting edema bilaterally General: Yes full ROM Assessment & Plan Assessment & Plan (1) Rheumatoid arthritis: Comment: PMR dx 2019 ttt PDN tapered off 07/2022 Seroneg RA dx 01/2023 Code(s): M06.9 - Rheumatoid arthritis, unspecified Category: Medical Qualifiers: Rheumatoid arthritis location: multiple sites Rheumatoid factor presence: without rheumatoid factor Qualified Code(s): M06.09 - Rheumatoid arthritis without rheumatoid factor, multiple sites Plan: 83-year-old male with seronegative RA who presents for follow-up. On Prednisone 1 mg daily. Symptoms well controlled overall. Continue prednisone 1 mg daily. Discussed long-term side effects of steroids such as glaucoma, worsening diabetes control, hypertension. However this is a very low-dose with relatively lower risk. Advised patient to follow-up regularly with an field return repairer Labs before next visit in 6 months (2) Unilateral primary osteoarthritis of first carpometacarpal joint, left hand: Code(s): M18.12 - Unilateral primary osteoarthritis of first carpometacarpal joint, left hand Category: Medical Plan: Injected in clinic 07/2022 with good relief Plan I spent 26 minutes reviewing patient's chart, evaluating patient, ordering diagnostic workup, counseling patient and documenting in the chart Orders: Orders Comprehensive Met. Panel 6 Months M06.09 - Rheumatoid arthritis without rheumatoid factor, multiple sites C Reactive Protein 6 Months M06.09 - Rheumatoid arthritis without rheumatoid factor, multiple sites Complete Blood Count Auto Diff 6 Months M06.09 - Rheumatoid arthritis without rheumatoid factor, multiple sites Erythrocyte Sedimentation Rate 6 Months M06.09 - Rheumatoid arthritis without rheumatoid factor, multiple sites Hemoglobin A1c 6 Months E11.9 - Type 2 diabetes mellitus without complications Medications: Refilled prednisone 1 mg PO DAILY 90 tabs 1RF Coding Level of Care Code Est Pt Level 4 (22857) Diagnoses Rheumatoid arthritis of multiple sites with negative rheumatoid factor M06.09 Rheumatoid arthritis location: multiple sites Rheumatoid factor presence: without rheumatoid factor Unilateral primary osteoarthritis of first carpometacarpal joint, left hand M18.12
== END 2024-01-02 08:27 | disposition home or self-care (01) ==
PROVIDERS: PCP Physician Assistant; Visit Provider Student in an Organized Health Care Education/Training Program
DX: M06.09 Rheumatoid arthritis without rheumatoid factor, multiple sites (principal); M18.12 Unilateral primary osteoarthritis of first carpometacarpal joint, left hand
CPT/HCPCS: 99214

== ENCOUNTER → 2024-01-02 07:58 | Outpatient (BNVA) | payer MEDICARE, SELFPAY | PROVIDERS: PCP Physician Assistant; Visit Provider Student in an Organized Health Care Education/Training Program | DX: M06.09 Rheumatoid arthritis without rheumatoid factor, multiple sites (principal); M18.12 Unilateral primary osteoarthritis of first carpometacarpal joint, left hand | CPT/HCPCS: 99212 ==